=== PATIENT | female | born 1975 | race Hispanic/Latino ===

== ENCOUNTER → 2024-09-24 | Day surgery (SDC) | payer OTHER ==
[~2024-09-24] MED LIST: ALBUTEROL0.63 MG/3 NEB; ALLEGRA ALLERGY60 MG PO; CRESTOR40 MG PO; GLUCAGON FOR INJ 1 MG VIAL ONE; HYOSCYAMINE SULFATE 0.5 MG/ML INJ ONE; PROBIOTIC & AC1 EACH PO; PROPOFOL IV EMULSION 10 MG/ML 20 ML VIAL ONE
[2024-09-24] MEDS: LACTATED RINGER'S 1,000 ML ONE (09:43)
[2024-09-24 12:29] VITALS: BP 110/67; PULSE 79; RESP 17; O2SAT 99
== END | disposition home or self-care (01) ==
LOC: OR 09:07
PROVIDERS: ATTEND Internal Medicine Gastroenterology
DX: R19.5 Other fecal abnormalities (principal); K62.1 Rectal polyp; K63.5 Polyp of colon; K59.09 Other constipation; K64.8 Other hemorrhoids; Z71.3 Dietary counseling and surveillance; F17.210 Nicotine dependence, cigarettes, uncomplicated; Z71.6 Tobacco abuse counseling; Z01.810 Encounter for preprocedural cardiovascular examination; Z68.25 Body mass index [BMI] 25.0-25.9, adult
CPT/HCPCS: 45380; 81025; 93005; J1610; J1980; J2704; J7121; 45378; 45385